=== PATIENT | male | born 1950 | race Caucasian/White ===

== ENCOUNTER 2023-11-03 09:43 | Inpatient (IN) ==
--- NOTE | 2023-10-24 14:06 | PAT Medication Instructions ---
Medication Instructions Date of Service October 24, 2023 Home Medications Medication Instructions Recorded triamcinolone acetonide 0.5 % 1 applic topical TID #15 grams 07/25/23 topical cream triamcinolone acetonide 0.5 % topical cream 1 applic topical TID Balance Of Nature Fruits/Vegs 1 dose PO DAILY Lactobacillus acidophilus 250 million cell capsule (Probiotic Acidophilus) 1,000 mmu cells PO HS alfuzosin 10 mg tablet,extended release 24 hr 10 mg PO QPM amlodipine 10 mg tablet 10 mg PO QAM aspirin 81 mg capsule 81 mg PO HS carbamazepine 300 mg capsule,extended release [id number] 600 mg PO QAM carbamazepine 300 mg capsule,extended release [id number] 900 mg PO HS ezetimibe 10 mg tablet (Zetia) 10 mg PO QPM metoprolol succinate 25 mg tablet,extended release 24 hr 75 mg PO BID rosuvastatin 20 mg tablet 20 mg PO QPM tolterodine 4 mg capsule,extended release 24 hr 4 mg PO QPM STOP taking 2 weeks before surgery (or as soon as possible): Balance Of Nature Fruits/Vegs 1 dose PO DAILY STOP taking 24 hours before surgery triamcinolone acetonide 0.5 % topical cream 1 applic topical TID Take morning of surgery With a small sip of water, OTHERWISE NOTHING TO EAT OR DRINK AFTER MIDNIGHT: amlodipine 10 mg tablet 10 mg PO QAM carbamazepine 300 mg capsule,extended release [id number] 600 mg PO QAM metoprolol succinate 25 mg tablet,extended release 24 hr 75 mg PO BID Take evening before surgery Lactobacillus acidophilus 250 million cell capsule (Probiotic Acidophilus) 1,000 mmu cells PO HS alfuzosin 10 mg tablet,extended release 24 hr 10 mg PO QPM aspirin 81 mg capsule 81 mg PO HS (unless surgeon directed otherwise) carbamazepine 300 mg capsule,extended release [id number] 900 mg PO HS ezetimibe 10 mg tablet (Zetia) 10 mg PO QPM metoprolol succinate 25 mg tablet,extended release 24 hr 75 mg PO BID rosuvastatin 20 mg tablet 20 mg PO QPM tolterodine 4 mg capsule,extended release 24 hr 4 mg PO QPM Other Notes If you have any questions please call us at [phone] or [phone] or [phone] or [phone]
--- NOTE | 2023-10-24 14:16 | Anesthesiology Consultation ---
Date of Service October 24, 2023 Assessment & Plan (1) Encounter for pre-operative examination: Chart Review Chart Review: Acceptable Risk for Surgery (pending review of most recent vascular note, carotid imaging, AAA imaging ) and Patient seen in Pre Admission Testing - Please obtain most recent vascular note, carotid imaging, and AAA imaging (Dr. Basim Flores- [facility]- [facility]) - Patient is NOT an OPJ candidate Chlorhexidine wipes NOT give due to open wound in surgical area Per PAT appt on 10/24/23, no recent illness/disease exposures, illness related symptoms, or recent illness/disease positive tests. Will leave to surgeon's discretion if preop Covid testing needed Last seen by cardiology 08/16/2023 = patient seen for follow-up on aortic stenosi s. Prosthetic heart valvenormal functioning bioprosthetic aortic valve based on last echo. HypertensionBP goal <130/80mmHg. Atherosclerotic heart diseasestable with no new symptoms. Hyperlipidemiacontinue statin. Abdominal aortic aneurysmwill try to obtain most recent imaging. Patient following with vascular surgery. Teaching & Discussion Pre-Anesthesia Teaching/Discussion Notes: Instructed NPO after midnight before surgery,except medications with 15 cc of water. Medication instructions provided according to the PAT guidelines. History Surgery Operation Date: 11/03/23 11:00 Proposed Procedures p Partial Revision Left Total Shoulder Arthroplasty with Irrigation and Debridement - Javier Patel, DO Height/Weight Height: 5 ft 10.5 in Weight: 99.7 kg Allergies Allergy/AdvReac Type Severity Reaction Status Date / Time No Known Allergies Allergy Verified 10/24/23 13:36 Medications Home Medications Medication Instructions Recorded Confirmed Last Taken triamcinolone acetonide 0.5 % 1 applic topical TID #15 grams 07/25/23 10/24/23 Unknown topical cream Balance Of Nature Fruits/Vegs 1 dose PO DAILY 10/24/23 10/24/23 Unknown Lactobacillus acidophilus 250 1,000 mmu cells PO HS 10/24/23 10/24/23 Unknown million cell capsule (Probiotic Acidophilus) alfuzosin 10 mg tablet,extended 10 mg PO QPM 10/24/23 10/24/23 Unknown release 24 hr amlodipine 10 mg tablet 10 mg PO QAM 10/24/23 10/24/23 Unknown aspirin 81 mg capsule 81 mg PO HS 10/24/23 10/24/23 Unknown carbamazepine 300 mg 600 mg PO QAM 10/24/23 10/24/23 Unknown capsule,extended release [id number] carbamazepine 300 mg 900 mg PO HS 10/24/23 10/24/23 Unknown capsule,extended release [id number] ezetimibe 10 mg tablet (Zetia) 10 mg PO QPM 10/24/23 10/24/23 Unknown metoprolol succinate 25 mg 75 mg PO BID 10/24/23 10/24/23 Unknown tablet,extended release 24 hr rosuvastatin 20 mg tablet 20 mg PO QPM 10/24/23 10/24/23 Unknown tolterodine 4 mg capsule,extended 4 mg PO QPM 10/24/23 10/24/23 Unknown release 24 hr Past Medical History Medical History (Updated 10/25/23 @ 16:14 by Molly Rudd PA-C) AAA (abdominal aortic aneurysm) under observation with vascular provider Aortic stenosis Severe s/p AVR 04/22/[address] Yanelis Page ([facility]- phone: [phone]) Asthma mild - no issues Basal cell carcinoma hx - s/p excision (multiple) BPH (benign prostatic hyperplasia) CAD (coronary artery disease) 2 vessel CABG at same time of AVR 2019 Carotid stenosis, bilateral right endarterectomy in 2019 -- monitoring the left side follows with vascular [facility] (Dr Flores) Hx of malignant neoplasm of kidney (09/2020) resolved with cryoablation therapy in 09/2020 Hyperglycemia Hyperlipidemia Hypertension Injury of left shoulder Initially injured in 2010 while in [facility], had surgery to repair Kidney stones hx - passed on his own -no surgical intervention no recent issues Osteoarthritis Seizures dx 03/2005 -> grand mal seizures. last seizure 2010 Exercise / Class Metabolic Activity II 4-5 Yardwork/Stairs/Walk up hill (one flight of stairs - no chest pain or SOB ) Past Family History Family History Father Coronary heart disease Past Surgical History Surgical History H/O shoulder surgery left shoulder surgery with K-wires (while in [facility]) 2011 History of carotid endarterectomy left (03/2020) History of colonoscopy History of coronary artery bypass graft x 2 2019 (with AVR) History of heart valve replacement aortic bovine valve (#23 inspiris tissue) 03/2020 at a hospital in [place], [place]. History of reverse total replacement of left shoulder joint (12/2011) History of surgical removal of skin lesion S/P cryoablation of mass of kidney (09/2020) S/P left rotator cuff repair 10/2010 Past Anesthesia History No Hx of Anesthesia Complications and No Family Hx of Anesthesia Complications History of PONV No Hx of PONV and No Hx of Motion Sickness Social History Smoking Status: Former smoker Do You Dip or Chew Tobacco: No Smoking End Date: 1980 Hx Alcohol Use: Yes Alcohol type: beer and hard liquor alcohol intake frequency: a few times a month Hx Substance Use: No substance use type: does not use Review of Systems - Hx of snoring - no witnessed apnea- no hx of sleep study Patient denies chest pain, shortness of breath, dyspnea on exertion, reflux, cough, wheezing, palpitations. No hx of stroke, VT. No hx of blood clots or blood transfusions Physical Exam Vital Signs VITALS BP 147/72 P 68 TEMP 97.7 SP02 94% RESP 16 Constitutional no acute distress ENMT Mouth: no TMJ clicking Thyromental Distance: > or= 3.5 Finger Breadths (3.5) Mallampati Class: I Missing molars and side teeth Crowns to top front teeth Neck + limited neck extension (mild) Respiratory normal respiratory effort; no respiratory distress Auscultation: lungs clear to auscultation bilaterally; no wheezes Cardiovascular Rate/Rhythm: regular rate and regular rhythm Heart Sounds: + murmur (III/ murmur ) Vessels: + carotid bruit (faint bilateral carotid bruit vs radiation of murmur ) Musculoskeletal Spine: no pain with cervical ROM Extremities: extremities normal to inspection Psychiatric Orientation: alert Lab Results Anesthesia Preop Results Results Anesthesia Widget: WBC 6.82 K/ul (4.8-10.8) 10/24/23 Hgb 13.8 g/dl (14.0-18.0) L 10/24/23 Hct 40.9 % (42.0-52.0) L 10/24/23 Plt 277 K/uL (130-400) 10/24/23 Na 136 mmol/L (136-145) 10/24/23 K 4.2 mmol/L (3.5-5.1) 10/24/23 Cl 100 mmol/L (98-107) 10/24/23 CO2 31 mmol/L (21-32) 10/24/23 BUN 9 mg/dl (6-23) 10/24/23 Creat 0.67 mg/dl (0.6-1.4) 10/24/23 Glucose Level 191 mg/dl (70-99(Fasting)) H 10/24/23 PT 11.4 Seconds (9.0-12.0) 10/24/23 PTT 31 Seconds (21-31) 10/24/23 INR 1.0 (0.9-1.1) 10/24/23 HA1c 5.8 % (4.5-5.6) H 10/24/23 Blood Type A Positive 10/24/23 Antibody Screen NEGATIVE 10/24/23 Testing Laboratory Results Hyperglycemia- Hgb A1C added (Hgb A1C 5.8) Electrocardiogram Date: 08/16/23 SR with 1st degree AVB at 65bpm Non specific T wave abnormality Chest X-Ray Date: 10/24/23 FINDINGS: Cardiac silhouette is upper limits of normal in size. Median sternotomy with cardiac valvular prosthesis. Left shoulder arthroplasty. Chronic-appearing bilateral rib fractures. Mild linear subsegmental left basilar atelectasis versus scarring. No pneumothorax, pleural effusion or overt pulmonary edema. Mild hyperinflation with diaphragm flattening. IMPRESSION: No acute process. Echocardiogram Date: 02/08/23 EF: 55-60% LV Function: normal Other Findings: + diastolic dysfunction (Grade i ); no LVH LA mildly dilated Normal functioning bioprosthetic AV. Cardiac Catheterization Date: 02/20/20 LM = luminal irregularities LAD = luminal regularities D1 luminal irregularities Left circumflex 100% proximal occlusion. LPL is seen via collaterals OM1 luminal regularities RCA 100% mid occlusion. [id number] collaterals are noted. RHC = PA: 35 over 15 mmHg, mean PA pressure = 25 mmHg.
[~2023-11-03 09:43] MED LIST: BUPIVACAINE 0.5 % 5 MG/1 ML PF 10ML VIAL ONE
--- NOTE | 2023-11-03 10:21 | History & Physical Bridge Note ---
Date of Service November 03, 2023 History & Physical Bridge Note I have examined the patient, reviewed the History & Physical and in the interval since the performance of the History & Physical I have noted the following changes of clinical significance: no changes noted
[2023-11-03] MEDS: LR 15ML/HR IV SCH (10:30)
[2023-11-03] MEDS: LR 60ML/HR IV SCH (10:40)
[2023-11-03] MEDS: FAMOTIDINE 20 MG TAB PO SCH (10:42)
[2023-11-03] MEDS: GABAPENTIN 300 MG CAP PO SCH (10:42)
[2023-11-03] MEDS: ACETAMINOPHEN 500 MG TAB PO SCH ×2 (10:43→20:35)
[2023-11-03] MEDS: dexAMETHasone**PF** 10 MG/ML VIAL IV SCH (10:44)
[2023-11-03] MEDS ORDERED: ONDANSETRON INJ 2 MG/ML 2 ML VIAL ONE (10:50)
[2023-11-03] MEDS ORDERED: LIDOCAINE 2% 2 ML VIAL/AMP(20MG/ML) INFIL ONE (10:50)
[2023-11-03] MEDS ORDERED: fentaNYL citrate PF 100 MCG/2 ML VIAL ONE (10:50)
[2023-11-03] MEDS ORDERED: DEXAMETHASONE SOD INJ 4 MG/ML VIAL ONE (10:50)
[2023-11-03] MEDS ORDERED: MIDAZOLAM HCL 1 MG/ML 2ML VIAL ONE (10:50)
[2023-11-03] MEDS ORDERED: PROPOFOL IV EMULSION 10 MG/ML 20 ML VIAL IV ONE (10:50)
[2023-11-03] MEDS ORDERED: ATROPINE SULFATE 0.1 MG/ML 10ML SYR IV PRN (11:20)
[2023-11-03] MEDS ORDERED: ONDANSETRON INJ 2 MG/ML 2 ML VIAL IV PRN ×2 (11:20→15:17)
[2023-11-03] MEDS ORDERED: fentaNYL citrate PF 100 MCG/2 ML VIAL IV PRN (11:20)
[2023-11-03] MEDS ORDERED: ePHEDrine sulfate 50 MG/ML AMP IV PRN (11:20)
[2023-11-03] MEDS ORDERED: LARYING-O-JET KIT (LTA) ONE (11:38)
[2023-11-03] MEDS ORDERED: ROCURONIUM BROMIDE 10 MG/ML 5 ML VIAL IV ONE (11:38)
[2023-11-03] MEDS: TRANEXAMIC ACID 1,000 MG **IV Pre-op IV SCH (12:00)
[2023-11-03] MEDS: ceFAZolin 2000MG 2,000 MG/15 ML SYR IV SCH (12:18)
[2023-11-03] MEDS ORDERED: SODIUM CHLORIDE 0.9% PF INJ 10 ML VIAL ONE (12:35)
[2023-11-03] MEDS ORDERED: ePHEDrine sulfate 50 MG/ML AMP ONE (12:35)
[2023-11-03] MEDS: ORTHO JOINT ANESTHETIC ONE (13:03)
[2023-11-03] MEDS: DAKIN'S SOLN 0.5% FULL STRENGTH 473ML BTL IR SCH (14:00)
[2023-11-03] MEDS: TRANEXAMIC ACID 1,000 MG **IV Intra-op IV SCH (14:03)
[2023-11-03] MEDS: ROPIV 0.5% 246mg, Ketorolac 30mg, EPINEPHrine 0.5mg in NSS INFIL SCH (14:04)
[2023-11-03] MEDS ORDERED: SUGAMMADEX SODIUM 200 MG/2 ML VIAL IV ONE (14:08)
--- NOTE | 2023-11-03 14:29 | Operative Report ---
PG Post Operative Report Pre & Post Diagnosis Operation Date: 11/03/23 11:40 Pre-Op Diagnosis: Prosthetic Left Shoulder Infection Post-Op Diagnosis: Prosthetic Left Shoulder Infection I identified the patient and participated in the time-out.: Yes Procedure Operation Date: 11/03/23 11:40 Actual Procedures p Partial Revision Left Total Shoulder Arthroplasty with Irrigation and Debridement(Left) - Javier Patel DO Surgeon Javier Patel DO Brusher Javier Grande PA-C Estimated Blood Loss 150 Findings Consistent with Post-Op Diagnosis Specimens Cultures from the shoulder joint Description of Procedure On November 03, 2023 Dyllan arrived at [facility] for the above procedure. He was seen in the preoperative holding area and the operative extremity identified and signed. Is given a preoperative antibiotic and a left interscalene nerve block. He is taken back to the operative room and laid on table supine position. He was put under general anesthesia. He was put into the beachchair position. Left shoulder was prepped and draped sterile fashion. A timeout was done. The patient and the operative extremity was properly identified. The previous incision was opened back up. Towards the inferior aspect of this incision I was able to dissect down to the humerus. There was a moderate amount of clear fluid expressed from that area. I did not see any purulent fluid. I did continue to dissection approximately. I was able to dissect into the glenohumeral joint. There was also a small amount of clear fluid. It almost looks like standard synovial fluid but it was difficult to tell. There was no bhavani pus. Significant time was then spent developing tissue planes to free up the shoulder. Care was taken not to damage any of the neurovascular structures. He has been dealing with the shoulder for the last 12 years with on and off infection type symptoms. I felt it was reasonable at this point to do a modular component exchange and a full I&D of the shoulder. The shoulder was then dislocated. The humeral bearing was removed. The glenosphere was exposed and the glenosphere was removed. Time was spent debriding all surrounding tissue. Once a complete debridement was done, a 3-minute Betadine lavage was then done. The components were then scrubbed vigorously with a Betadine scrub brush. The joint was then irrigated with 3 L normal saline solution. A 3-minute lavage of Dakin solution was then done. After that this complex was scrubbed vigorously with a Betadine scrub brush. The wound was then irrigated with 3 L of normal saline solution by pulse lavage. The shoulder was then once again irrigated with 3 L normal saline solution. Once the shoulder was cleaned, some of the drapes were changed. We are able to get a new Bovie tip and use suction tip. All gloves were changed. A clean table was brought in. A DePuy eccentric glenosphere was then screwed into place. A +6 retentive implant was then impacted into place. The shoulder was then reduced. The shoulder brought through full range of motion and felt to be stable. The deltopectoral interval was then closed with 2-0 Vicryl suture. Skin was closed with 3-0 Vicryl and pilar. He was then placed in a soft dressing and a regular arm sling. He was then extubated and transferred to a [facility]. He was taken to the postanesthesia care unit in stable condition. He tolerated the procedure well. Javier Grande PA-C, was present for the entire procedure. He was critical for patient positioning, prepping, draping, retraction exposure, wound closure and application of sterile dressing. I attest to the content of the Intraoperative Record and any orders documented therein. Any exceptions are noted below.
--- NOTE | 2023-11-03 14:52 | Anesthesiology Progress Note ---
Date of Service November 03, 2023 Anesthesia Post Procedure Vital Signs Vital Signs: Temp Pulse Resp BP Pulse Ox O2 Del Method O2 Flow Rate 11/03/23 14:45 74 13 119/72 95 Room Air 11/03/23 14:35 70 15 112/74 97 Oxymask 9 11/03/23 14:25 97.3 F L 73 13 126/71 97 Oxymask 9 11/03/23 10:27 97.5 F L 72 16 163/88 H 95 Room Air Transfer of Care Handoff Completed per policy Notes Mental Status: alert / awake / arousable and participated in evaluation Patient Amnestic to Procedure: Yes Nausea / Vomiting: adequately controlled Pain: adequately controlled Airway Patency, RR, SpO2: stable & adequate BP & HR: stable & adequate Hydration State: stable & adequate Anesthetic Complications: no major complications apparent and Pt Satisfied with anesthetic care
--- NOTE | 2023-11-03 15:16 | XRay Report ---
XR shoulder LT min 2V routine CLINICAL HISTORY: Post shoulder surgery TECHNIQUE: 3 views of the left shoulder were obtained. Comparison: Comparison is made to shoulder radiograph 04/30/2012 FINDINGS: Patient is status post shoulder arthroplasty with expected postsurgical changes including soft tissue swelling and subcutaneous emphysema. No periarticular lucency or hardware fracture is seen. IMPRESSION: Expected postoperative appearance status post placement of shoulder arthroplasty. ACT 112: Negative or not required by law. Electronically signed by: Guzman Torrez M.D. 11/03/2023 3:14 PM
[2023-11-03] MEDS ORDERED: oxyCODONE HCL IR 5 MG TAB (IMMEDIATE RELEASE) PO PRN (15:17)
[2023-11-03] MEDS ORDERED: NALOXONE HCL 0.4 MG/1 ML VIAL/CARP IV PRN (15:17)
[2023-11-03] MEDS ORDERED: bisacodyL 10 MG SUPP PR PRN (15:17)
[2023-11-03] MEDS ORDERED: VANCOMYCIN CONSULT ACTIVE PRN (15:17)
[2023-11-03] MEDS ORDERED: MAGNESIUM HYDROXIDE SUSP 30 ML UDC PO PRN (15:17)
[2023-11-03] MEDS ORDERED: METOCLOPRAMIDE HCL INJ 5 MG/ML 2 ML VIAL IV PRN (15:17)
[2023-11-03] MEDS ORDERED: HYDROmorphone INJ 0.5 MG/0.5 ML SYR IV PRN (15:17)
[2023-11-03] MEDS: SODIUM CHLORIDE 0.9% 1,000 ML IV SCH (15:54)
[2023-11-03] MEDS: VANCOMYCIN HCL 1,500 MG in SODIUM CHLORIDE 0.9% 500 ML IV ONE (17:54)
[2023-11-03] MEDS: KETOROLAC TROMETHAMINE 15 MG/ML VIAL IV SCH (17:54)
--- NOTE | 2023-11-03 18:26 | Infectious Disease Consult ---
Date of Consultation November 03, 2023 Assessment & Plan (1) Prosthetic shoulder infection: (2) Shoulder pain, left: (3) Asthma: Plan 73yo M with h/o LUE surgery at an including ORIF of proximal humerus OSH, s/p left cemented reverse shoulder replacement 12/2011, CAD s/p CABG, renal cancer in 2020 s/p cryoablation, asthma, BPH, seizures, renal stones, some h/o valve replacement who presented on 11/02 for surgery. Per chart, his shoulder has always been a little stiff and sore. He began noticing redness and hardness of the left axilla and was seen by outpatient ortho in Jul 2023, at which time this was ongoing x 6 weeks. Shoulder did not appear to be infected at that time. He was seen on 10/23 with left axilla drainage with some redness in the most inferior aspect of the incision. An MRI of the shoulder showed a large fluid collection beneath the prosthesis in the axilla. He was therefore planned for OR and undergo I+D. Here he has been afebrile, vss. WBC wnl, Cr wnl. ESR 33. MRI of the shoulder done on 10/15/2023 showed a rim-enhancing intramuscular fluid collection measuring up to 5.8cm within the teres major, suspicious for abscess. He is s/p partial revision left total shoulder arthroplasty with irrigation and debridement on 11/02 (per op note, moderate clear fluid expressed, joint irrigated and tissue debrided, no pus noted). Postop XR with expected postoperative appearance status post placement of shoulder arthroplasty. ID consulted 11/02 for assistance. Will wait for OR cx to determine plan. I will also add blood cultures. Synovial cultures should also be sent for AFB and fungal cultures, which Marge called micro lab about. # Concern for Left shoulder infectin # h/o left shoulder replacement # h/o CAD - Marge added on AFB and fungal cx to OR specimen - Marge ordered blood cultures and CRP - Marge also ordered am labs - will continue on empiric vancomycin for now - will change cefazolin to CTX 2g IV daily for empiric gram negative coverage - patient to be seen in via video on Monday ID will continue to follow. If questions or concerns, contact Infectious Disease Call Center . Kasia Lincoln MD [facility], Division of Infectious Diseases [facility]: [phone] Consultation Information This patient recommendation is based on a telemedicine consult request which was completed asynchronously through chart review and information provided by the primary physician. The patient was not seen or examined today. The evaluation is consultative in nature and all patient care and treatment decisions can either be accepted or rejected by the patient's primary hospital-based treating physician using their own independent medical judgment for their patient. [employer] contact information: Please call [facility] Call Center [phone]. (Phone Number For Physician Use Only) Time Spent Reviewing Chart: 31+ minutes History of Present Illness Reason for Consultation: postop total shoulder infection Attending Physician: Javier Patel, History of Present Illness No telepresenter available at this time, consult done via chart review. 73yo M with h/o LUE surgery at an including ORIF of proximal humerus OSH, s/p left cemented reverse shoulder replacement 12/2011, CAD s/p CABG, renal cancer in 2020 s/p cryoablation, asthma, BPH, seizures, renal stones, some h/o valve replacement who presented on 11/02 for surgery. Per chart, his shoulder has always been a little stiff and sore. He began noticing redness and hardness of the left axilla and was seen by outpatient ortho in Jul 2023, at which time this was ongoing x 6 weeks. Shoulder did not appear to be infected at that time. He was seen on 10/23 with left axilla drainage with some redness in the most inferior aspect of the incision. An MRI of the shoulder was done which showed good prosthesis, large fluid collection beneath the prosthesis in the axilla. He was therefore planned for OR and undergo I+D. Here he has been afebrile, vss. WBC wnl, Cr wnl. ESR 33. MRI of the shoulder done on 10/15/2023 showed a rim- enhancing intramuscular fluid collection measuring up to 5.8cm within the teres major, suspicious for abscess. He is s/p partial revision left total shoulder arthroplasty with irrigation and debridement on 11/02 (per op note, moderate clear fluid expressed, joint irrigated and tissue debrided, no pus noted). Postop XR with expected postoperative appearance status post placement of shoulder arthroplasty. ID consulted 11/02 for assistance. Allergies Allergy/AdvReac Type Severity Reaction Status Date / Time No Known Allergies Allergy Verified 11/03/23 10:17 Home Medications Medication Instructions Recorded Confirmed Type triamcinolone acetonide 0.5 % 1 applic topical TID #15 grams 07/25/23 11/03/23 Rx topical cream Balance Of Nature Fruits/Vegs 1 dose PO DAILY 10/24/23 11/03/23 History Lactobacillus acidophilus 250 1,000 mmu cells PO HS 10/24/23 11/03/23 History million cell capsule (Probiotic Acidophilus) alfuzosin 10 mg tablet,extended 10 mg PO QPM 10/24/23 11/03/23 History release 24 hr amlodipine 10 mg tablet 10 mg PO QAM 10/24/23 11/03/23 History aspirin 81 mg capsule 81 mg PO HS 10/24/23 11/03/23 History carbamazepine 300 mg 600 mg PO QAM 10/24/23 11/03/23 History capsule,extended release [id number] carbamazepine 300 mg 900 mg PO HS 10/24/23 11/03/23 History capsule,extended release [id number] ezetimibe 10 mg tablet (Zetia) 10 mg PO QPM 10/24/23 11/03/23 History metoprolol succinate 25 mg 75 mg PO BID 10/24/23 11/03/23 History tablet,extended release 24 hr rosuvastatin 20 mg tablet 20 mg PO QPM 10/24/23 11/03/23 History tolterodine 4 mg capsule,extended 4 mg PO QPM 10/24/23 11/03/23 History release 24 hr Patient History Medical History Hyperglycemia CAD (coronary artery disease) 2 vessel CABG at same time of AVR 2019 AAA (abdominal aortic aneurysm) under observation with vascular provider Aortic stenosis Severe s/p AVR 04/22/[address] Yanelis Page ([facility]- phone: [phone]) Injury of left shoulder Initially injured in [address] [facility], had surgery to repair Carotid stenosis, bilateral right endarterectomy in 2019 -- monitoring the left side follows with vascular [facility] (Dr Flores) Osteoarthritis Hx of malignant neoplasm of kidney (09/2020) resolved with cryoablation therapy in 09/2020 Kidney stones hx - passed on his own -no surgical intervention no recent issues Hyperlipidemia Seizures dx 03/2005 -> grand mal seizures. last seizure 2010 Hypertension Asthma mild - no issues BPH (benign prostatic hyperplasia) Basal cell carcinoma hx - s/p excision (multiple) Surgical History History of coronary artery bypass graft x 2019 (with AVR) S/P left rotator cuff repair 10/2010 H/O shoulder surgery left shoulder surgery with K-wires (while in [facility]) 2010 History of reverse total replacement of left shoulder joint (12/2011) History of carotid endarterectomy left (03/2020) S/P cryoablation of mass of kidney (09/2020) History of colonoscopy History of surgical removal of skin lesion History of heart valve replacement aortic bovine valve (#23 inspiris tissue) 03/2020 at a hospital in [place], [place]. Family History Father Coronary heart disease Social History Smoking Status: Former smoker Tobacco Type: Cigarettes Smoking End Date: 1980; Second Hand Exposure: No; Do You Dip or Chew Tobacco: No; Tobacco Cessation Education Requested by Patient: No Hx Alcohol Use: Yes Alcohol type: beer and hard liquor Hx Substance Use: No Preferred Language: Sami Communication Ability: Effective Corporate Lawyer Required: No Beliefs That Will Affect Care: None Current Living Situation: Spouse Other Information That Helps Us Care for You: No Feels Safe at Home: Yes Safety Concerns: Feels Safe At This Time Assistive Devices: Glasses Assistive Devices Comment: dental crowns Results & Data Vital Signs (Past 12 Hours) Vital Signs Temp Pulse Pulse Pulse Resp BP Pulse Ox 11/03/23 18:09 36.9 C 72 18 144/77 H 94 11/03/23 17:14 36.7 C 71 17 124/73 93 11/03/23 16:15 36.7 C 70 17 123/72 94 11/03/23 15:56 71 16 120/74 93 11/03/23 15:17 36.6 C 75 16 117/66 95 11/03/23 15:05 72 15 110/60 94 11/03/23 14:55 36.3 C L 71 15 117/68 95 11/03/23 14:45 74 13 119/72 95 11/03/23 14:35 70 15 112/74 97 11/03/23 14:25 36.3 C L 73 13 126/71 97 11/03/23 10:27 36.4 C L 72 16 163/88 H 95 O2 Del Method O2 Flow Rate 11/03/23 18:09 Room Air 11/03/23 17:14 Room Air 11/03/23 16:15 Room Air 11/03/23 15:56 Room Air 11/03/23 15:17 Room Air 11/03/23 15:05 Room Air 11/03/23 14:55 Room Air 11/03/23 14:45 Room Air 11/03/23 14:35 Oxymask 9 11/03/23 14:25 Oxymask 9 11/03/23 10:27 Room Air Laboratory Results Labs reviewed. Diagnostic Findings Imaging reviewed.
[2023-11-03] MEDS ORDERED: ceFAZolin 2000MG 2,000 MG/15 ML SYR IV SCH (20:30)
[2023-11-03] MEDS: OXYBUTYNIN CHLORIDE XL 5 MG TABCR PO SCH (20:35)
[2023-11-03] MEDS: EZETIMIBE 10 MG TAB PO SCH (20:35)
[2023-11-03] MEDS: METOPROLOL SUCC 25MG EXT REL TAB PO SCH (20:36)
[2023-11-03] MEDS: TAMSULOSIN HCL 0.4 MG CAP PO SCH (20:36)
[2023-11-03] MEDS: ROSUVASTATIN CALCIUM 20 MG TAB PO SCH (20:36)
[2023-11-03] MEDS: SENNA 8.6 MG TAB PO SCH (20:36)
[2023-11-03] MEDS: DOCUSATE SODIUM 100 MG CAP PO SCH (20:37)
[2023-11-03] MEDS ORDERED: TRIAMCINOLONE ACET 0.5% CR 15 GM TUBE TOP SCH (21:00)
[2023-11-03] MEDS: cefTRIAXone SODIUM 2,000 MG in DEXTROSE 5 % MINI-B 50 ML IV SCH (21:00)
[2023-11-03] MEDS ORDERED: CARBAMAZEPINE 300 MG PO SCH (21:00)
[2023-11-04 06:13] LABS: Basophils # (auto) 0.01 K/uL (0.00-0.20); Basophils % (auto) 0.1 %; Eosinophils # (auto) 0.01 K/uL (0.00-0.50); Eosinophils % (auto) 0.1 %; Hematocrit (blood only) 39.7 % (42.0-52.0); Hemoglobin 13.4 g/dl (14.0-18.0); Immature Granulocytes # (auto) 0.07 K/uL (0.01-0.20); Immature Granulocytes % (auto) 0.4 %; Lymphocytes % (auto) 6.9 %; Mean Corpuscular Hemoglobin 29.6 pg (25.0-34.0); Mean Corpuscular Hgb Conc 33.8 g/dL (32.0-36.0); Mean Corpuscular Volume 87.8 fL (80.0-100.0); Mean Platelet Volume 9.8 fL (9.4-12.4); Monocytes # (auto) 1.14 K/uL (0.11-0.59); Monocytes % (auto) 7.1 %; Neutrophils % (auto) 85.4 %; Platelet Count 298 K/uL (130-400); RDW Coefficient of Variation 12.7 % (11.5-14.5); Red Blood Count 4.52 M/uL (4.70-6.10); White Blood Count 16.03 K/ul (4.8-10.8)
[2023-11-04 06:28] LABS: Albumin Globulin Ratio 1.1 (0.9-2); BUN Creatinine Ratio 18.8 (10-20); Bilirubin,Total 0.3 mg/dl (0.2-1.0); Calcium 9.2 mg/dl (8.6-10.3); Creatinine Clr Calc Pharmacy 94.2 ml/min; Est GFR (African American) 101.6 ml/min; Est GFR (Non-African American) 87.7 ml/min; Globulin 3.6 gm/dl (2.5-4.0); Potassium 4.4 mmol/L (3.5-5.1); Total Protein 7.6 gm/dl (6.0-8.3)
[2023-11-04] MEDS ORDERED: CARBAMAZEPINE 300 MG PO SCH (09:00)
[2023-11-04] MEDS: amLODIPine BESYLATE 5 MG TAB PO SCH (09:09)
[2023-11-04] MEDS: MULTIVITAMIN TAB PO SCH (09:09)
--- NOTE | 2023-11-04 10:29 | Hospitalist Consultation ---
Date of Consultation November 04, 2023 Assessment & Plan (1) Prosthetic shoulder infection: - Patient had partial revision left total shoulder arthroplasty with irrigation and debridement with Dr. Patel on 11/03/2023 due to prosthetic left shoulder infection. - Leukocytosis at 16. Afebrile. CRP elevated at 2.31. - Currently on empiric vancomycin and ceftriaxone. Cultures pending. - Pain control, activity level, medication reconciliation, and discharge planning per the primary team. (2) CAD (coronary artery disease) of artery bypass graft: - Patient with history of CAD s/p CABG, bioprosthetic valve replacements, aortic stenosis, bilateral carotid stenosis s/p right endarterectomy, and abdominal aortic aneurysm - Continue amlodipine, aspirin, metoprolol - Continue ezetimibe and rosuvastatin for hyperlipidemia (3) Seizures: - Diagnosed after grand mal seizure in 2004. Last known seizure in 2010. - Continue carbamazepine (4) Hx of malignant neoplasm of kidney: - Resolved with cryoablation therapy in 09/2020 (5) BPH (benign prostatic hyperplasia): - Continue Alfuzosin and tolterodine (6) Asthma: - Mild. No SOB, wheezing, or respiratory distress at this time. Plan Pain control, activity level, medication reconciliation, and discharge planning per the primary team CODE STATUS: Full code History of Present Illness Reason for Consultation: Post-operative management Requesting Physician: Javier Grande PA-C Attending Physician: Javier Patel DO History of Present Illness Patient had partial revision left total shoulder arthroplasty with irrigation and debridement with Dr. Patel on 11/03/2023 due to prosthetic left shoulder infection. Patient with history of CAD s/p CABG, renal cancer in 2020 s/p cryoablation, seizures, bioprosthetic valve replacements, renal stones, BPH, asthma. Per operative note, moderate clear fluid was expressed, joint irrigated and tissue debrided, no pus noted. Infectious disease was consulted for concern of left shoulder infection. Patient is on empiric vancomycin and ceftriaxone. AFB and fungal culture on OR specimen and blood cultures pending. Patient seen and evaluated at bedside with . He reports that he is feeling well and his pain is well-controlled with medication. He states he slept well last night and has a good appetite. He is urinating normally, has not had a bowel movement yet. He has no complaints at this time. Denies shortness of breath, chest pain, abdominal pain, headache, lightheadedness. Allergies Allergy/AdvReac Type Severity Reaction Status Date / Time No Known Allergies Allergy Verified 11/03/23 10:17 Home Medications Medication Instructions Recorded Confirmed Type triamcinolone acetonide 0.5 % 1 applic topical TID #15 grams 07/25/23 11/03/23 Rx topical cream Balance Of Nature Fruits/Vegs 1 dose PO DAILY 10/24/23 11/03/23 History Lactobacillus acidophilus 250 1,000 mmu cells PO HS 10/24/23 11/03/23 History million cell capsule (Probiotic Acidophilus) alfuzosin 10 mg tablet,extended 10 mg PO QPM 10/24/23 11/03/23 History release 24 hr amlodipine 10 mg tablet 10 mg PO QAM 10/24/23 11/03/23 History aspirin 81 mg capsule 81 mg PO HS 10/24/23 11/03/23 History carbamazepine 300 mg 600 mg PO QAM 10/24/23 11/03/23 History capsule,extended release [id number] carbamazepine 300 mg 900 mg PO HS 10/24/23 11/03/23 History capsule,extended release [id number] ezetimibe 10 mg tablet (Zetia) 10 mg PO QPM 10/24/23 11/03/23 History metoprolol succinate 25 mg 75 mg PO BID 10/24/23 11/03/23 History tablet,extended release 24 hr rosuvastatin 20 mg tablet 20 mg PO QPM 10/24/23 11/03/23 History tolterodine 4 mg capsule,extended 4 mg PO QPM 10/24/23 11/03/23 History release 24 hr Patient History Medical History (Updated 11/04/23 @ 10:47 by Bailey Chris PA-C) Renal cancer Rectal bleeding Rectal bleeding Hyperglycemia CAD (coronary artery disease) 2 vessel CABG at same time of AVR 2019 AAA (abdominal aortic aneurysm) under observation with vascular provider Aortic stenosis Severe s/p AVR 04/22/[address] Yanelis Page ([facility]- phone: [phone]) Injury of left shoulder Initially injured in 2010 while in [facility], had surgery to repair Carotid stenosis, bilateral right endarterectomy in 2019 -- monitoring the left side follows with vascular [facility] (Dr Flores) Osteoarthritis Hx of malignant neoplasm of kidney (09/2020) resolved with cryoablation therapy in 09/2020 Kidney stones hx - passed on his own -no surgical intervention no recent issues Hyperlipidemia Seizures dx 03/2005 -> grand mal seizures. last seizure 2010 Hypertension Asthma mild - no issues BPH (benign prostatic hyperplasia) Basal cell carcinoma hx - s/p excision (multiple) Surgical History (Updated 11/04/23 @ 10:22 by Bailey Chris PA-C) History of coronary artery bypass graft x 2 2019 (with AVR) S/P left rotator cuff repair 10/2010 H/O shoulder surgery left shoulder surgery with K-wires (while in [facility]) 2010 History of reverse total replacement of left shoulder joint (12/2011) History of carotid endarterectomy left (03/2020) S/P cryoablation of mass of kidney (09/2020) History of colonoscopy History of surgical removal of skin lesion History of heart valve replacement aortic bovine valve (#23 inspiris tissue) 03/2020 at a hospital in [place], [place]. Family History Father Coronary heart disease Social History Smoking Status: Former smoker Tobacco Type: Cigarettes Smoking End Date: 1980; Second Hand Exposure: No; Do You Dip or Chew Tobacco: No; Tobacco Cessation Education Requested by Patient: No Hx Alcohol Use: Yes Alcohol type: beer and hard liquor Hx Substance Use: No Preferred Language: Samoan Communication Ability: Effective Legal Billing Analyst Required: No Beliefs That Will Affect Care: None Current Living Situation: Spouse Other Information That Helps Us Care for You: No Feels Safe at Home: Yes Safety Concerns: Feels Safe At This Time Assistive Devices: None Assistive Devices Comment: dental crowns Physical Exam Physical Exam: General: No acute distress, nondiaphoretic, well-developed, well-nourished. Skin: The skin was without rashes, erythema, edema, or bruising. Cardiac: Regular rate and rhythm without gallops or rubs. Systolic murmur. No carotid bruits. Pulm: Clear to auscultation bilaterally without wheezes, rales or rhonchi. No retractions or accessory muscle use. Abdominal: Positive bowel sounds x 4. Soft, nontender, without masses or organomegaly. No guarding or rebound tenderness. Neuro: A&O x3. No focal neurological deficits. Extremities: Left arm in sling. Left shoulder dressing is clean and dry. Normal motion of left wrist and hand. Good perfusion to left fingers. Results & Data Results & Data Vital Signs (Past 12 Hours) Vital Signs Temp Pulse Resp BP Pulse Ox O2 Del Method 11/04/23 07:26 36.7 C 62 16 145/83 H 93 Room Air 11/04/23 03:32 36.6 C 64 16 147/78 H 93 Room Air 11/03/23 22:29 36.4 C L 65 16 127/69 94 Room Air Laboratory Results Reviewed CBC Reviewed chemistries Reviewed shoulder x-ray Reviewed cultures PG Care Time/CCT Total # of Minutes Spent Total Time Spent with Patient: Total time spent is greater than 50% in coordination of care (as documented) at patient's floor/unit and/or counseling patient: Coding Level of Care Code 60661 IN/OBS CONSULT LVL 3,45M Diagnoses Infection of prosthetic shoulder joint, initial encounter T84.59XA; Z96.619 Encounter type: initial encounter Coronary artery disease involving coronary bypass graft of [place] heart without angina pectoris I25.810 Associated angina: without angina [place] vs. transplanted heart: [place] heart Seizures R56.9 Hx of malignant neoplasm of kidney Z85.528 Benign prostatic hyperplasia, unspecified whether lower urinary tract symptoms present N40.0 Lower urinary tract symptom presence: unspecified whether lower urinary tract symptoms present Uncomplicated asthma, unspecified asthma severity, unspecified whether persistent J45.909 Asthma complication type: uncomplicated Asthma persistence: unspecified Asthma severity: unspecified severity (1) Prosthetic shoulder infection Encounter type: initial encounter Qualified Code(s): T84.59XA - Infection and inflammatory reaction due to other internal joint prosthesis, initial encounter; Z96.619 - Presence of unspecified artificial shoulder joint (2) CAD (coronary artery disease) of artery bypass graft Associated angina: without angina [place] vs. transplanted heart: [place] heart Qualified Code(s): I25.810 - Atherosclerosis of coronary artery bypass graft(s) without angina pectoris (5) BPH (benign prostatic hyperplasia) Lower urinary tract symptom presence: unspecified whether lower urinary tract symptoms present Qualified Code(s): N40.0 - Benign prostatic hyperplasia without lower urinary tract symptoms (6) Asthma Asthma complication type: uncomplicated Asthma persistence: unspecified Asthma severity: unspecified severity Qualified Code(s): J45.909 - Unspecified asthma, uncomplicated
--- NOTE | 2023-11-04 11:24 | Orthopedic Progress Note ---
Date of Service November 04, 2023 Assessment & Plan (1) Prosthetic shoulder infection: Overall he is doing fairly well. He was seen by infectious disease today and his antibiotics were switched to ceftriaxone. He was also seen by the hospitalist. Blood cultures were obtained. Were currently awaiting intraoper ative cultures. Overall he is comfortable for now. Will keep him on the IV antibiotics and await culture results. Jacoby Mijares was seen and examined at bedside this morning. Overall is doing fairly well. Is not having too much pain in the left shoulder. He was able to get some sleep last night. Has no complaints.. Review of Systems All systems reviewed & are unremarkable except as noted in HPI & below. Physical Exam On physical examination left shoulder, the dressing is clean and dry. He is wearing his sling as instructed. He has active motion of his hand and his wrist.. Results & Data Results & Data Laboratory Results . Diagnostic Findings . PG Care Time/CCT Total # of Minutes Spent Total Time Spent with Patient: Total time spent is greater than 50% in coordination of care (as documented) at patient's floor/unit and/or counseling patient: Coding Level of Care Code 09381 Post Operative Follow-Up Diagnoses Infection of prosthetic shoulder joint, initial encounter T84.59XA; Z96.619 Encounter type: initial encounter (1) Prosthetic shoulder infection Encounter type: initial encounter Qualified Code(s): T84.59XA - Infection and inflammatory reaction due to other internal joint prosthesis, initial encounter; Z96.619 - Presence of unspecified artificial shoulder joint
[2023-11-05 06:44] LABS: Albumin Globulin Ratio 1.1 (0.9-2); Albumin Level 3.6 gm/dl (3.4-5.0); BUN Creatinine Ratio 22.4 (10-20); Bilirubin,Total 0.3 mg/dl (0.2-1.0); Calcium 8.8 mg/dl (8.6-10.3); Creatinine Clr Calc Pharmacy 105.4 ml/min; Est GFR (African American) 106.4 ml/min; Est GFR (Non-African American) 91.8 ml/min; Globulin 3.2 gm/dl (2.5-4.0); Potassium 4.1 mmol/L (3.5-5.1); Total Protein 6.8 gm/dl (6.0-8.3)
[2023-11-05 06:47] LABS: Basophils # (auto) 0.04 K/uL (0.00-0.20); Basophils % (auto) 0.4 %; Eosinophils # (auto) 0.16 K/uL (0.00-0.50); Eosinophils % (auto) 1.6 %; Hematocrit (blood only) 36.8 % (42.0-52.0); Hemoglobin 12.2 g/dl (14.0-18.0); Immature Granulocytes # (auto) 0.04 K/uL (0.01-0.20); Immature Granulocytes % (auto) 0.4 %; Lymphocytes # (auto) 2.07 K/uL (1.20-3.40); Lymphocytes % (auto) 21.2 %; Mean Corpuscular Hemoglobin 29.6 pg (25.0-34.0); Mean Corpuscular Hgb Conc 33.2 g/dL (32.0-36.0); Mean Corpuscular Volume 89.3 fL (80.0-100.0); Monocytes # (auto) 0.82 K/uL (0.11-0.59); Monocytes % (auto) 8.4 %; Neutrophils # (auto) 6.62 K/uL (1.40-6.50); Platelet Count 243 K/uL (130-400); RDW Coefficient of Variation 13.2 % (11.5-14.5); RDW Standard Deviation 43.1 fL (36.4-46.3); Red Blood Count 4.12 M/uL (4.70-6.10); White Blood Count 9.75 K/ul (4.8-10.8)
--- NOTE | 2023-11-05 10:16 | Hospitalist Progress Note ---
Date of Service November 05, 2023 Assessment & Plan (1) Prosthetic shoulder infection: Plan: - Patient had partial revision left total shoulder arthroplasty with irrigation and debridement with Dr. Patel on 11/03/2023 due to prosthetic left shoulder infection. - Leukocytosis at 16. Afebrile. CRP elevated at 2.31. - Currently on empiric vancomycin and ceftriaxone. -- Preliminary left shoulder and blood cultures negative. - Pain control, activity level, medication reconciliation, and discharge planning per the primary team. (2) CAD (coronary artery disease) of artery bypass graft: Plan: - Patient with history of CAD s/p CABG, bioprosthetic valve replacements, aortic stenosis, bilateral carotid stenosis s/p right endarterectomy, and abdominal aortic aneurysm - Continue amlodipine, aspirin, metoprolol - Continue ezetimibe and rosuvastatin for hyperlipidemia (3) Seizures: Plan: - Diagnosed after grand mal seizure in 2004. Last known seizure in 2010. - Continue carbamazepine (4) Hx of malignant neoplasm of kidney: Plan: - Resolved with cryoablation therapy in 09/2020 (5) BPH (benign prostatic hyperplasia): Plan: - Continue Alfuzosin and tolterodine (6) Asthma: Plan: - Mild. No SOB, wheezing, or respiratory distress at this time. Plan Pain control, activity level, medication reconciliation, and discharge planning per the primary team CODE STATUS: Full code Admission and Anticipated Discharge Date Admission Date: November 03, 2023 Supervising Physician Co-Signing Physician Notes The patient was not seen by me. The chart was reviewed. Case discussed with CHRISTINE Adair. Agree with assessment and plan Subjective Patient had partial revision left total shoulder arthroplasty with irrigation and debridement with Dr. Patel on 11/03/2023 due to prosthetic left shoulder infection. Patient with history of CAD s/p CABG, renal cancer in 2020 s/p cr yoablation, seizures, bioprosthetic valve replacements, renal stones, BPH, asthma. Patient seen and evaluated sitting in bedside chair with in the room. He reports he is feeling well, has no pain at this time, and has been up walking the halls this morning. He had a bowel movement last night. He has no complaints. Denies shortness of breath, chest pain, abdominal pain, headache, lightheadedness. He states that he feels ready to go home. We discussed that ID is also consulted on his case to recommend antibiotic management. He is agreeable to whatever decision the primary team and ID decides for treatment course. Physical Exam Physical Exam: General: No acute distress, nondiaphoretic, well-developed, well-nourished. Skin: The skin was without rashes, erythema, edema, or bruising. Cardiac: Regular rate and rhythm without gallops or rubs. Systolic murmur. No carotid bruits. Pulm: Clear to auscultation bilaterally without wheezes, rales or rhonchi. No retractions or accessory muscle use. Abdominal: Positive bowel sounds x 4. Soft, nontender, without masses or organomegaly. No guarding or rebound tenderness. Neuro: A&O x3. No focal neurological deficits. Extremities: Left arm in sling. Left shoulder dressing is clean and dry. Normal motion of left wrist and hand. Good perfusion to left fingers. Results & Data Results & Data Vital Signs (Past 12 Hours) Vital Signs Temp Pulse Resp BP Pulse Ox O2 Del Method 11/05/23 07:14 36.5 C 57 L 17 169/83 H 94 Room Air Laboratory Results Reviewed CBC Reviewed CMP PG Care Time/CCT Total # of Minutes Spent Total Time Spent with Patient: Total time spent is greater than 50% in coordination of care (as documented) at patient's floor/unit and/or counseling patient: Coding Level of Care Code 60843 SUB INP/OBS CARE 2/35MIN Diagnoses Infection of prosthetic shoulder joint, initial encounter T84.59XA; Z96.619 Encounter type: initial encounter Coronary artery disease involving coronary bypass graft of [place] heart without angina pectoris I25.810 Associated angina: without angina [place] vs. transplanted heart: [place] heart Seizures R56.9 Hx of malignant neoplasm of kidney Z85.528 Benign prostatic hyperplasia, unspecified whether lower urinary tract symptoms present N40.0 Lower urinary tract symptom presence: unspecified whether lower urinary tract symptoms present Uncomplicated asthma, unspecified asthma severity, unspecified whether persistent J45.909 Asthma complication type: uncomplicated Asthma persistence: unspecified Asthma severity: unspecified severity (1) Prosthetic shoulder infection Encounter type: initial encounter Qualified Code(s): T84.59XA - Infection and inflammatory reaction due to other internal joint prosthesis, initial encounter; Z96.619 - Presence of unspecified artificial shoulder joint (2) CAD (coronary artery disease) of artery bypass graft Associated angina: without angina [place] vs. transplanted heart: [place] heart Qualified Code(s): I25.810 - Atherosclerosis of coronary artery bypass graft(s) without angina pectoris (5) BPH (benign prostatic hyperplasia) Lower urinary tract symptom presence: unspecified whether lower urinary tract symptoms present Qualified Code(s): N40.0 - Benign prostatic hyperplasia without lower urinary tract symptoms (6) Asthma Asthma complication type: uncomplicated Asthma persistence: unspecified Asthma severity: unspecified severity Qualified Code(s): J45.909 - Unspecified asthma, uncomplicated
--- NOTE | 2023-11-05 13:29 | Orthopedic Progress Note ---
Date of Service November 05, 2023 Assessment & Plan (1) Prosthetic shoulder infection: He continues to be treated with the ceftriaxone. He is not having much pain in his shoulder. We are still waiting for culture results. The hospitalist has been following him as well as infectious disease. We will await for final infectious disease recommendations before we discharge him to home. Jacoby Mijares was seen and examined at bedside this morning. Overall he is doing very well. He is not having much pain in the left shoulder. He has been receiving IV antibiotics. He has no complaints.. Review of Systems All systems reviewed & are unremarkable except as noted in HPI & below. Physical Exam On physical examination left shoulder, the dressing is clean and dry. He is wearing his sling as instructed. He has active motion of his hand and his wrist.. Results & Data Results & Data Laboratory Results . Diagnostic Findings . PG Care Time/CCT Total # of Minutes Spent Total Time Spent with Patient: Total time spent is greater than 50% in coordination of care (as documented) at patient's floor/unit and/or counseling patient: Coding Level of Care Code 38341 Post Operative Follow-Up Diagnoses Infection of prosthetic shoulder joint, initial encounter T84.59XA; Z96.619 Encounter type: initial encounter (1) Prosthetic shoulder infection Encounter type: initial encounter Qualified Code(s): T84.59XA - Infection and inflammatory reaction due to other internal joint prosthesis, initial encounter; Z96.619 - Presence of unspecified artificial shoulder joint
[2023-11-06 06:57] LABS: Basophils # (auto) 0.04 K/uL (0.00-0.20); Basophils % (auto) 0.5 %; Eosinophils # (auto) 0.18 K/uL (0.00-0.50); Eosinophils % (auto) 2.3 %; Hematocrit (blood only) 36.6 % (42.0-52.0); Hemoglobin 12.3 g/dl (14.0-18.0); Immature Granulocytes # (auto) 0.02 K/uL (0.01-0.20); Immature Granulocytes % (auto) 0.3 %; Lymphocytes # (auto) 1.37 K/uL (1.20-3.40); Lymphocytes % (auto) 17.3 %; Mean Corpuscular Hemoglobin 29.7 pg (25.0-34.0); Mean Corpuscular Hgb Conc 33.6 g/dL (32.0-36.0); Mean Corpuscular Volume 88.4 fL (80.0-100.0); Mean Platelet Volume 9.8 fL (9.4-12.4); Monocytes # (auto) 0.78 K/uL (0.11-0.59); Monocytes % (auto) 9.8 %; Neutrophils # (auto) 5.55 K/uL (1.40-6.50); Neutrophils % (auto) 69.8 %; Platelet Count 243 K/uL (130-400); RDW Coefficient of Variation 13.1 % (11.5-14.5); RDW Standard Deviation 42.5 fL (36.4-46.3); Red Blood Count 4.14 M/uL (4.70-6.10); White Blood Count 7.94 K/ul (4.8-10.8)
[2023-11-06 07:20] LABS: BUN Creatinine Ratio 17.2 (10-20); Calcium 8.9 mg/dl (8.6-10.3); Creatinine Clr Calc Pharmacy 125.1 ml/min; Est GFR (African American) 114.2 ml/min; Est GFR (Non-African American) 98.5 ml/min; Potassium 3.6 mmol/L (3.5-5.1)
--- NOTE | 2023-11-06 09:49 | Orthopedic Progress Note ---
Date of Service November 06, 2023 Assessment & Plan (1) Prosthetic shoulder infection: He continues to be treated with the ceftriaxone. He is not having much pain in his left shoulder. We are still waiting for culture results. The hospitalist has been following him as well as infectious disease. We will await for final infectious disease recommendations before we discharge him to home. Anticipated discharge within the next day or so upon receipt of final culture results as well as final recommendations for discharge antibiotic coverage. Patient was seen and evaluated today with Dr. Patel with agreed-upon plan as above Subjective . Dyllan was seen and evaluated today resting comfortably in no apparent distress. Overall he is doing quite well today with good pain control to the left shoulder. He has been up and out of bed without difficulty. He has been receiving IV antibiotics. He denies any other concerns today. Review of Systems All systems reviewed & are unremarkable except as noted in HPI & below. Physical Exam . On physical examination of left shoulder, dressings are clean, dry, intact. He is maintaining his sling to the left shoulder. Grossly intact motor and sensory function to the left upper extremity. +2 radial pulse. Less than 2- second capillary refill. Normal sensation. Neurovascular intact. Results & Data Results & Data Laboratory Results . Diagnostic Findings . PG Care Time/CCT Total # of Minutes Spent Total Time Spent with Patient: Total time spent is greater than 50% in coordination of care (as documented) at patient's floor/unit and/or counseling patient: Coding Level of Care Code 32821 Post Operative Follow-Up Diagnoses Infection of prosthetic shoulder joint, initial encounter T84.59XA; Z96.619 Encounter type: initial encounter (1) Prosthetic shoulder infection Encounter type: initial encounter Qualified Code(s): T84.59XA - Infection and inflammatory reaction due to other internal joint prosthesis, initial encounter; Z96.619 - Presence of unspecified artificial shoulder joint
--- NOTE | 2023-11-06 10:06 | Infectious Disease Progress Nt ---
Date of Service November 06, 2023 Assessment & Plan (1) Prosthetic shoulder infection: (2) Shoulder pain, left: (3) Asthma: Plan 73yo M with h/o LUE surgery at an including ORIF of proximal humerus OSH, s/p left cemented reverse shoulder replacement 12/2011, CAD s/p CABG, renal cancer in 2020 s/p cryoablation, asthma, BPH, seizures, renal stones, some h/o valve replacement who presented on 11/02 for surgery. Per chart, his shoulder has always been a little stiff and sore. He began noticing redness and hardness of the left axilla and was seen by outpatient ortho in Jul 2023, at which time this was ongoing x 6 weeks. Shoulder did not appear to be infected at that time. He was seen on 10/23 with left axilla drainage with some redness in the most inferior aspect of the incision. An MRI of the shoulder showed a large fluid collection beneath the prosthesis in the axilla. He was therefore planned for OR and undergo I+D. Here he has been afebrile, vss. WBC wnl, Cr wnl. ESR 33. MRI of the shoulder done on 10/15/2023 showed a rim-enhancing intramuscular fluid collection measuring up to 5.8cm within the teres major, suspicious for abscess. He is s/p partial revision left total shoulder arthroplasty with irrigation and debridement on 11/02 (per op note, moderate clear fluid expressed, joint irrigated and tissue debrided, no pus noted). Postop XR with expected postoperative appearance status post placement of shoulder arthroplasty. ID consulted 11/02 for assistance. ON 11/02 He went to OR for Partial Revision Left Total Shoulder Arthroplasty with Irrigation and Debridement and component exchange OR fluid appeared clear without infection. OR cultures are NG I spoke with daughter and patient today, He apparently was on abx prior to admission including Doxycycline and Bactrim. this may have reduced yield # Concern for Left shoulder infection # h/o left shoulder replacement # h/o CAD - C/W [employer] and Vancomycin for now Anticiapte he will be discharged on Daptomycin and Ceftriaxone tomorrow -Can place PICC line -Will d/w teams, likely 6 week of therapy followed by oral suppressive, unclear cause of abscess at this time as he is HD stable, etc ID will continue to follow. If questions or concerns, contact Infectious Disease Call Center . Sona Benavidez MD [facility], Division of Infectious Diseases [facility]: [phone] Admission and Anticipated Discharge Date Admission Date: November 03, 2023 Subjective Subsequent visit was provided via telemedicine using two-way real-time interactive telecommunication between the patient and the telemedicine provider. For the duration of the visit, the provider was performing the assessment from a different facility than the patient. This includesuse of bluetooth stethoscope forauscultationperformed by the telepresenter that the telemedicine provider can hear if described in the physical exam. [employer] contact information: Please call [facility] Call Center . (Phone Number For Physician Use Only) After establishing a telemedicine visit, patient was: Patient was verified with two unique identifiers, Patient/authorized rep acknowledged consent and understanding and Gave permission to continue telehealth session Time Spent with Patient: Subsequent => 35 min No complaints Daughter at bedside Physical Exam Physical Exam: NAD OOB to Chair PIVs, no rash Left shoulder in sling OP Clear No dyspnea Results & Data Vital Signs (Past 12 Hours) Vital Signs Temp Pulse Resp BP Pulse Ox O2 Del Method 11/06/23 09:00 Room Air 11/06/23 07:31 36.6 C 68 15 153/78 H 96 Room Air Laboratory Results Laboratory Results - last 48 hr 11/05/23 11/06/23 05:51 06:17 WBC 9.75 7.94 RBC 4.12 L 4.14 L Hgb 12.2 L 12.3 L Hct 36.8 L 36.6 L MCV 89.3 88.4 MCH 29.6 29.7 MCHC 33.2 33.6 RDW Std Deviation 43.1 42.5 RDW Coeff of Mac 13.2 13.1 Plt Count 243 243 MPV 10.0 9.8 Immature Gran % (Auto) 0.4 0.3 Neut % (Auto) 68.0 69.8 Lymph % (Auto) 21.2 17.3 [place] % (Auto) 8.4 9.8 Eos % (Auto) 1.6 2.3 Baso % (Auto) 0.4 0.5 Neut # (Auto) 6.62 H 5.55 Lymph # (Auto) 2.07 1.37 [place] # (Auto) 0.82 H 0.78 H Eos # (Auto) 0.16 0.18 Baso # (Auto) 0.04 0.04 Immature Gran # (Auto) 0.04 0.02 Sodium 138 139 Potassium 4.1 3.6 Chloride 107 106 Carbon Dioxide 27 28 Anion Gap 4 5 BUN 17 11 Creatinine 0.76 0.64 Est Cr Clr Drug Dosing 105.4 125.1 Est GFR ( Amer) 106.4 114.2 Est GFR (Non-Af Amer) 91.8 98.5 BUN/Creatinine Ratio 22.4 H 17.2 Glucose 108 H 105 H Calcium 8.8 8.9 Total Bilirubin 0.3 AST 15 ALT 9 Alkaline Phosphatase 111 H Total Protein 6.8 Albumin 3.6 Globulin 3.2 Albumin/Globulin Ratio 1.1 Microbiology 11/03/23 18:58 Blood Aerobic Blood Culture - Preliminary No growth in Aerobic bottle after 48 hours. 11/03/23 18:58 Blood Anaerobic Blood Culture - Preliminary No growth in Anaerobic bottle after 48 hours. 11/03/23 18:58 Blood Aerobic Blood Culture - Preliminary No growth in Aerobic bottle after 48 hours. 11/03/23 18:58 Blood Anaerobic Blood Culture - Preliminary No growth in Anaerobic bottle after 48 hours. 11/03/23 12:58 Shoulder,Left Gram Stain - Final 11/03/23 12:58 Shoulder,Left Aerobic and Anaerobic Culture - Preliminary No growth to date. Diagnostic Findings Shoulder X-Ray 11/03/23 14:29 XR shoulder LT min 2V routine CLINICAL HISTORY: Post shoulder surgery TECHNIQUE: 3 views of the left shoulder were obtained. Comparison: Comparison is made to shoulder radiograph 04/30/2012 FINDINGS: Patient is status post shoulder arthroplasty with expected postsurgical changes including soft tissue swelling and subcutaneous emphysema. No periarticular lucency or hardware fracture is seen. IMPRESSION: Expected postoperative appearance status post placement of shoulder arthroplasty. ACT 112: Negative or not required by law. Electronically signed by: Guzman Torrez M.D. 11/03/2023 3:14 PM Medications Administered Current Inpatient Medications Acetaminophen (Acetaminophen 500 Mg Tab) 1,000 mg PO Q8 [facility] Stop: 12/03/23 21:59 Last Admin: 11/06/23 05:03 Dose: 1,000 mg Amlodipine Besylate (Amlodipine Besylate 5 Mg Tab) 10 mg PO QAM [facility] Stop: 12/04/23 08:59 Last Admin: 11/06/23 07:15 Dose: 10 mg Bisacodyl (Bisacodyl 10 Mg Supp) 10 mg ME DAILY PRN PRN Reason: Constipation Stop: 12/03/23 15:16 Docusate Sodium (Docusate Sodium 100 Mg Cap) 100 mg PO BID [facility] Stop: 12/03/23 20:59 Last Admin: 11/06/23 07:16 Dose: 100 mg Ezetimibe (Ezetimibe 10 Mg Tab) 10 mg PO QPM [facility] Stop: 12/03/23 20:59 Last Admin: 11/05/23 20:03 Dose: 10 mg Hydromorphone HCl (Hydromorphone Inj 0.5 Mg/0.5 Ml Syr) 0.5 mg IV Q4H PRN PRN Reason: Pain or Pre PT Stop: 11/17/23 15:16 Ceftriaxone Sodium 2,000 mg/ (Dextrose) 50 mls @ 100 mls/hr IV Q24H [facility]; Protocol Stop: 12/15/23 18:59 Last Infusion: 11/05/23 20:24 Dose: Infused Magnesium Hydroxide (Magnesium Hydroxide Susp 30 Ml Udc) 30 ml PO Q6H PRN PRN Reason: Constipation Stop: 12/03/23 15:16 Metoclopramide HCl (Metoclopramide Hcl Inj 5 Mg/Ml 2 Ml Vial) 10 mg IV Q6H PRN PRN Reason: Nausea And Vomiting Stop: 12/03/23 15:16 Metoprolol Succinate (Metoprolol Succ 25mg Ext Rel Tab) 75 mg PO BID [facility] Stop: 12/03/23 20:59 Last Admin: 11/06/23 07:15 Dose: 75 mg Miscellaneous (Carbamazepine 12-Hr Caps: Order Awaiting Action) 1 each N/A QS [facility] Stop: 12/04/23 00:00 Last Admin: 11/06/23 07:15 Dose: Not Given Multivitamins (Multivitamin Tab) 1 tab PO QAM [facility] Stop: 12/04/23 08:59 Last Admin: 11/06/23 07:15 Dose: 1 tab Naloxone HCl (Naloxone Hcl 0.4 Mg/1 Ml Vial/Carp) 0.1 mg IV Q5M PRN PRN Reason: Oversedation/Resp Depression Stop: 12/03/23 15:16 Ondansetron HCl (Ondansetron Inj 2 Mg/Ml 2 Ml Vial) 4 mg IV Q6H PRN PRN Reason: Nausea And Vomiting Stop: 12/03/23 15:16 Oxybutynin Chloride (Oxybutynin Chloride Xl 5 Mg Tabcr) 10 mg PO QPM [facility] Stop: 12/03/23 20:59 Last Admin: 11/05/23 20:03 Dose: 10 mg Oxycodone HCl (Oxycodone Hcl Ir 5 Mg Tab (Immediate Release)) 5 - 10 mg PO Q4H PRN PRN Reason: Pain or Pre PT Stop: 11/17/23 15:16 Rosuvastatin Calcium (Rosuvastatin Calcium 20 Mg Tab) 20 mg PO QPM [facility] Stop: 12/03/23 20:59 Last Admin: 11/05/23 20:04 Dose: 20 mg Sennosides (Senna 8.6 Mg Tab) 17.2 mg PO HS [facility] Stop: 12/03/23 20:59 Last Admin: 11/05/23 20:04 Dose: 17.2 mg Tamsulosin HCl (Tamsulosin Hcl 0.4 Mg Cap) 0.4 mg PO QPM [facility] Stop: 12/03/23 20:59 Last Admin: 11/05/23 20:04 Dose: 0.4 mg (1) Prosthetic shoulder infection Encounter type: initial encounter Qualified Code(s): T84.59XA - Infection and inflammatory reaction due to other internal joint prosthesis, initial encounter; Z96.619 - Presence of unspecified artificial shoulder joint (3) Asthma Asthma complication type: uncomplicated Asthma persistence: unspecified Asthma severity: unspecified severity Qualified Code(s): J45.909 - Unspecified asthma, uncomplicated
--- NOTE | 2023-11-06 17:06 | Hospitalist Progress Note ---
Date of Service November 06, 2023 Assessment & Plan (1) Prosthetic shoulder infection: Plan: - Patient had partial revision left total shoulder arthroplasty with irrigation and debridement with Dr. Patel on 11/03/2023 due to prosthetic left shoulder infection. - Leukocytosis at 16. Afebrile. CRP elevated at 2.31. -Infectious disease consulted for antibiotic management. Per their note today, 11/06/2023, they recommend continuing with ceftriaxone and vancomycin for now. Anticipate discharge on daptomycin and ceftriaxone tomorrow via PICC line. Will likely need 6 weeks of therapy followed by oral suppression. -- Preliminary left shoulder and blood cultures negative. - Pain control, activity level, medication reconciliation, and discharge planning per the primary team. - Medicine will sign off at this time. (2) CAD (coronary artery disease) of artery bypass graft: Plan: - Patient with history of CAD s/p CABG, bioprosthetic valve replacements, aortic stenosis, bilateral carotid stenosis s/p right endarterectomy, and abdominal aortic aneurysm - Continue amlodipine, aspirin, metoprolol - Continue ezetimibe and rosuvastatin for hyperlipidemia (3) Seizures: Plan: - Diagnosed after grand mal seizure in 2004. Last known seizure in 2010. - Continue carbamazepine (4) Hx of malignant neoplasm of kidney: Plan: - Resolved with cryoablation therapy in 09/2020 (5) BPH (benign prostatic hyperplasia): Plan: - Continue Alfuzosin and tolterodine (6) Asthma: Plan: - Mild. No SOB, wheezing, or respiratory distress at this time. Plan Medicine will sign off at this time. Please contact with any questions or concerns. Pain control, activity level, medication reconciliation, and discharge planning per the primary team. CODE STATUS: Full code Admission and Anticipated Discharge Date Admission Date: November 03, 2023 Subjective Patient had partial revision left total shoulder arthroplasty with irrigation and debridement with Dr. Patel on 11/03/2023 due to prosthetic left shoulder infection. Patient with history of CAD s/p CABG, renal cancer in 2020 s/p cryoablation, seizures, bioprosthetic valve replacements, renal stones, BPH, as thma. Patient seen and evaluated sitting in bedside chair. He reports that he has been completing his PT exercises. His pain is well-controlled with medication. He denies shortness of breath, chest pain, abdominal pain, headache, lightheadedness, fever or chills. He has no complaints. Medicine will sign off at this time. Please contact with any questions or concerns. Physical Exam Physical Exam: General: No acute distress, nondiaphoretic, well-developed, well-nourished. Skin: The skin was without rashes, erythema, edema, or bruising. Cardiac: Regular rate and rhythm without gallops or rubs. Systolic murmur. No carotid bruits. Pulm: Clear to auscultation bilaterally without wheezes, rales or rhonchi. No retractions or accessory muscle use. Abdominal: Positive bowel sounds x 4. Soft, nontender, without masses or organomegaly. No guarding or rebound tenderness. Neuro: A&O x3. No focal neurological deficits. Extremities: Left arm in sling. Left shoulder dressing is clean and dry. Normal motion of left wrist and hand. Good perfusion to left fingers. Results & Data Results & Data Vital Signs (Past 12 Hours) Vital Signs Temp Pulse Resp BP Pulse Ox O2 Del Method 11/06/23 14:40 36.4 C L 64 17 136/70 95 Room Air 11/06/23 09:00 Room Air 11/06/23 07:31 36.6 C 68 15 153/78 H 96 Room Air Laboratory Results Reviewed CBC Reviewed BMP Reviewed left shoulder and blood cultures PG Care Time/CCT Total # of Minutes Spent Total Time Spent with Patient: Total time spent is greater than 50% in coordination of care (as documented) at patient's floor/unit and/or counseling patient: Coding Level of Care Code 27265 SUB INP/OBS CARE 08/17MIN Diagnoses Infection of prosthetic shoulder joint, initial encounter T84.59XA; Z96.619 Encounter type: initial encounter Coronary artery disease involving coronary bypass graft of [place] heart without angina pectoris I25.810 [place] vs. transplanted heart: [place] heart Associated angina: without angina Seizures R56.9 Hx of malignant neoplasm of kidney Z85.528 Benign prostatic hyperplasia, unspecified whether lower urinary tract symptoms present N40.0 Lower urinary tract symptom presence: unspecified whether lower urinary tract symptoms present Uncomplicated asthma, unspecified asthma severity, unspecified whether persistent J45.909 Asthma severity: unspecified severity Asthma persistence: unspecified Asthma complication type: uncomplicated (1) Prosthetic shoulder infection Encounter type: initial encounter Qualified Code(s): T84.59XA - Infection and inflammatory reaction due to other internal joint prosthesis, initial encounter; Z96.619 - Presence of unspecified artificial shoulder joint (2) CAD (coronary artery disease) of artery bypass graft [place] vs. transplanted heart: [place] heart Associated angina: without angina Qualified Code(s): I25.810 - Atherosclerosis of coronary artery bypass graft(s) without angina pectoris (5) BPH (benign prostatic hyperplasia) Lower urinary tract symptom presence: unspecified whether lower urinary tract symptoms present Qualified Code(s): N40.0 - Benign prostatic hyperplasia without lower urinary tract symptoms (6) Asthma Asthma severity: unspecified severity Asthma persistence: unspecified Asthma complication type: uncomplicated Qualified Code(s): J45.909 - Unspecified asthma, uncomplicated
[2023-11-06] MEDS: OXcarbazepine 150 MG TABLET PO SCH (20:05)
[2023-11-07] MEDS: OXcarbazepine 150 MG TABLET PO SCH (08:37)
[2023-11-07] MEDS: DAPTOmycin 350 MG in SYRINGE 0 ML IV SCH (09:54)
--- NOTE | 2023-11-07 10:09 | Infectious Disease Progress Nt ---
Date of Service November 07, 2023 Assessment & Plan (1) Prosthetic shoulder infection: (2) Shoulder pain, left: (3) Asthma: Plan 73yo M with h/o LUE surgery at an including ORIF of proximal humerus OSH, s/p left cemented reverse shoulder replacement 12/2011, CAD s/p CABG, renal cancer in 2020 s/p cryoablation, asthma, BPH, seizures, renal stones, some h/o valve replacement who presented on 11/02 for surgery. Per chart, his shoulder has always been a little stiff and sore. He began noticing redness and hardness of the left axilla and was seen by outpatient ortho in Jul 2023, at which time this was ongoing x 6 weeks. Shoulder did not appear to be infected at that time. He was seen on 10/23 with left axilla drainage with some redness in the most inferior aspect of the incision. An MRI of the shoulder showed a large fluid collection beneath the prosthesis in the axilla. He was therefore planned for OR and undergo I+D. Here he has been afebrile, vss. WBC wnl, Cr wnl. ESR 33. MRI of the shoulder done on 10/15/2023 showed a rim-enhancing intramuscular fluid collection measuring up to 5.8cm within the teres major, suspicious for abscess. He is s/p partial revision left total shoulder arthroplasty with irrigation and debridement on 11/02 (per op note, moderate clear fluid expressed, joint irrigated and tissue debrided, no pus noted). Postop XR with expected postoperative appearance status post placement of shoulder arthroplasty. ID consulted 11/02 for assistance. ON 11/02 He went to OR for Partial Revision Left Total Shoulder Arthroplasty with Irrigation and Debridement and component exchange OR fluid appeared clear without infection. OR cultures are NG I spoke with daughter and patient today, He apparently was on abx prior to admission including Doxycycline and Bactrim. this may have reduced yield. Patient states he does work out in yard quite a bit, mowing lawn, trees/branches. No gardening but does have soil exposure # Partial Revision Left Total Shoulder Arthroplasty with Irrigation and Debridement and component exchange 11/02, OR CX No Growth # h/o left shoulder replacement # h/o CAD - Started Daptomycin, please increase to 6mg/kg IVdaily (Adjusted body weight), 500mg IV daily -Continue Ceftriaxone 2G IV daily -Plan for 6 weeks therapy through 12/15/23, for culture negative PJI -This should be followed by oral suppressive for at least 1 year, Typically we use cephalosporin but given he was doxy before I would recomemnd doxycycline 100mg po BID with food , but this should be at discretion of outpatient ID physician -Outpatient: please follow send out AFB/fungal cultures -Weekly CBC With diff, cmp, ESR, CRP, CPK while on IV -Hold statin until daptomycin is completed -Check CPK level this am and ensure normal prior to discharge This plan discussed extensively with patient and family. ID to s/o- If questions or concerns, contact Infectious Disease Call Center . Sona Benavidez MD [facility], Division of Infectious Diseases [facility]: [phone] Admission and Anticipated Discharge Date Admission Date: November 03, 2023 Subjective Subsequent visit was provided via telemedicine using two-way real-time interactive telecommunication between the patient and the telemedicine provider. For the duration of the visit, the provider was performing the assessment from a different facility than the patient. This includesuse of bluetooth stethoscope forauscultationperformed by the telepresenter that the telemedicine provider can hear if described in the physical exam. [employer] Bench Worker contact information: Please call [facility] Call Center . (Phone Number For Physician Use Only) After establishing a telemedicine visit, patient was: Patient was verified with two unique identifiers, Patient/authorized rep acknowledged consent and understanding and Gave permission to continue telehealth session Time Spent with Patient: Subsequent => 35 min Physical Exam Physical Exam: NAD OOB to chair L arm in sling Results & Data Vital Signs (Past 12 Hours) Vital Signs Temp Pulse Resp BP Pulse Ox O2 Del Method 11/07/23 07:39 36.3 C L 62 18 142/78 H 96 Room Air Diagnostic Findings Laboratory Results - last 48 hr 11/06/23 06:17 WBC 7.94 RBC 4.14 L Hgb 12.3 L Hct 36.6 L MCV 88.4 MCH 29.7 MCHC 33.6 RDW Std Deviation 42.5 RDW Coeff of Mac 13.1 Plt Count 243 MPV 9.8 Immature Gran % (Auto) 0.3 Neut % (Auto) 69.8 Lymph % (Auto) 17.3 Worth % (Auto) 9.8 Eos % (Auto) 2.3 Baso % (Auto) 0.5 Neut # (Auto) 5.55 Lymph # (Auto) 1.37 Worth # (Auto) 0.78 H Eos # (Auto) 0.18 Baso # (Auto) 0.04 Immature Gran # (Auto) 0.02 Sodium 139 Potassium 3.6 Chloride 106 Carbon Dioxide 28 Anion Gap 5 BUN 11 Creatinine 0.64 Est Cr Clr Drug Dosing 125.1 Est GFR ( Amer) 114.2 Est GFR (Non-Af Amer) 98.5 BUN/Creatinine Ratio 17.2 Glucose 105 H Calcium 8.9 Microbiology 11/03/23 12:58 Shoulder,Left Gram Stain - Final 11/03/23 12:58 Shoulder,Left Aerobic and Anaerobic Culture - Preliminary Probable guilherme gram pos bacilli 11/03/23 18:58 Blood Aerobic Blood Culture - Preliminary No growth in Aerobic bottle after 48 hours. 11/03/23 18:58 Blood Anaerobic Blood Culture - Preliminary No growth in Anaerobic bottle after 48 hours. 11/03/23 18:58 Blood Aerobic Blood Culture - Preliminary No growth in Aerobic bottle after 48 hours. 11/03/23 18:58 Blood Anaerobic Blood Culture - Preliminary No growth in Anaerobic bottle after 48 hours. Medications Administered Current Inpatient Medications Acetaminophen (Acetaminophen 500 Mg Tab) 1,000 mg PO Q8 [facility] Stop: 12/03/23 21:59 Last Admin: 11/07/23 05:17 Dose: 1,000 mg Amlodipine Besylate (Amlodipine Besylate 5 Mg Tab) 10 mg PO QAM [facility] Stop: 12/04/23 08:59 Last Admin: 11/07/23 08:35 Dose: 10 mg Bisacodyl (Bisacodyl 10 Mg Supp) 10 mg MO DAILY PRN PRN Reason: Constipation Stop: 12/03/23 15:16 Docusate Sodium (Docusate Sodium 100 Mg Cap) 100 mg PO BID [facility] Stop: 12/03/23 20:59 Last Admin: 11/07/23 08:36 Dose: Not Given Ezetimibe (Ezetimibe 10 Mg Tab) 10 mg PO QPM [facility] Stop: 12/03/23 20:59 Last Admin: 11/06/23 20:04 Dose: 10 mg Hydromorphone HCl (Hydromorphone Inj 0.5 Mg/0.5 Ml Syr) 0.5 mg IV Q4H PRN PRN Reason: Pain or Pre PT Stop: 11/17/23 15:16 Ceftriaxone Sodium 2,000 mg/ (Dextrose) 50 mls @ 100 mls/hr IV Q24H [facility]; Protocol Stop: 12/15/23 18:59 Last Infusion: 11/06/23 21:01 Dose: Infused Daptomycin 350 mg/ Syringe 7 mls @ 3.25 mls/min IV Q24H [facility]; Protocol Stop: 11/09/23 08:59 Last Admin: 11/07/23 09:54 Dose: 3.25 mls/min Magnesium Hydroxide (Magnesium Hydroxide Susp 30 Ml Udc) 30 ml PO Q6H PRN PRN Reason: Constipation Stop: 12/03/23 15:16 Metoclopramide HCl (Metoclopramide Hcl Inj 5 Mg/Ml 2 Ml Vial) 10 mg IV Q6H PRN PRN Reason: Nausea And Vomiting Stop: 12/03/23 15:16 Metoprolol Succinate (Metoprolol Succ 25mg Ext Rel Tab) 75 mg PO BID [facility] Stop: 12/03/23 20:59 Last Admin: 11/07/23 08:36 Dose: 75 mg Multivitamins (Multivitamin Tab) 1 tab PO QAM [facility] Stop: 12/04/23 08:59 Last Admin: 11/07/23 08:37 Dose: 1 tab Naloxone HCl (Naloxone Hcl 0.4 Mg/1 Ml Vial/Carp) 0.1 mg IV Q5M PRN PRN Reason: Oversedation/Resp Depression Stop: 12/03/23 15:16 Ondansetron HCl (Ondansetron Inj 2 Mg/Ml 2 Ml Vial) 4 mg IV Q6H PRN PRN Reason: Nausea And Vomiting Stop: 12/03/23 15:16 Oxcarbazepine (Oxcarbazepine 150 Mg Tablet) 600 mg PO QAM [facility] Stop: 12/07/23 08:59 Last Admin: 11/07/23 08:37 Dose: 600 mg Oxcarbazepine (Oxcarbazepine 150 Mg Tablet) 900 mg PO QPM [facility] Stop: 12/06/23 20:59 Last Admin: 11/06/23 20:05 Dose: 900 mg Oxybutynin Chloride (Oxybutynin Chloride Xl 5 Mg Tabcr) 10 mg PO QPM [facility] Stop: 12/03/23 20:59 Last Admin: 11/06/23 20:03 Dose: 10 mg Oxycodone HCl (Oxycodone Hcl Ir 5 Mg Tab (Immediate Release)) 5 - 10 mg PO Q4H PRN PRN Reason: Pain or Pre PT Stop: 11/17/23 15:16 Rosuvastatin Calcium (Rosuvastatin Calcium 20 Mg Tab) 20 mg PO QPM [facility] Stop: 12/03/23 20:59 Last Admin: 11/06/23 20:06 Dose: 20 mg Sennosides (Senna 8.6 Mg Tab) 17.2 mg PO HS [facility] Stop: 12/03/23 20:59 Last Admin: 11/06/23 20:04 Dose: Not Given Tamsulosin HCl (Tamsulosin Hcl 0.4 Mg Cap) 0.4 mg PO QPM [facility] Stop: 12/03/23 20:59 Last Admin: 11/06/23 20:05 Dose: 0.4 mg (1) Prosthetic shoulder infection Encounter type: initial encounter Qualified Code(s): T84.59XA - Infection and inflammatory reaction due to other internal joint prosthesis, initial encounter; Z96.619 - Presence of unspecified artificial shoulder joint (3) Asthma Asthma severity: unspecified severity Asthma persistence: unspecified Asthma complication type: uncomplicated Qualified Code(s): J45.909 - Unspecified asthma, uncomplicated
[2023-11-07] MEDS: DAPTOmycin 150 MG in SYRINGE 0 ML IV SCH (12:44)
--- NOTE | 2023-11-07 13:41 | Orthopedic Progress Note ---
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 He is not having much pain in his left shoulder. Infectious disease wishes him to be on daptomycin as well as ceftriaxone for 6 weeks upon discharge. PICC line is going to be placed this morning. Once PICC line is in place and case management completes ordering his IV antibiotics, he may be discharged. He will follow-up with orthopedics in 2 weeks for postoperative management. Subjective . Dyllan was seen and evaluated today resting comfortably in no apparent distress. Overall he is doing quite well today with good pain control to the left shoulder. He has been up and out of bed without difficulty. He has been receiving IV antibiotics. He denies any other concerns today. Review of Systems All systems reviewed & are unremarkable except as noted in HPI & below. Physical Exam .On physical examination of left shoulder, dressings are clean, dry, intact. He is maintaining his sling to the left shoulder. Grossly intact motor and sensory function to the left upper extremity. +2 radial pulse. Less than 2- second capillary refill. Normal sensation. Neurovascular intact. Results & Data Results & Data Laboratory Results . Diagnostic Findings . PG Care Time/CCT Total # of Minutes Spent Total Time Spent with Patient: Total time spent is greater than 50% in coordination of care (as documented) at patient's floor/unit and/or counseling patient: Coding Level of Care Code 39825 Post Operative Follow-Up Diagnoses Infection of prosthetic shoulder joint, initial encounter T84.59XA; Z96.619 Encounter type: initial encounter (1) Prosthetic shoulder infection Encounter type: initial encounter Qualified Code(s): T84.59XA - Infection and inflammatory reaction due to other internal joint prosthesis, initial encounter; Z96.619 - Presence of unspecified artificial shoulder joint
--- NOTE | 2023-11-07 13:45 | Discharge Summary ---
Date of Service November 07, 2023 Principal Diagnosis Same as "Discharge Diagnosis" noted below under Discharge Instructions. Discharge Exam .On physical examination of left shoulder, dressings are clean, dry, intact. He is maintaining his sling to the left shoulder. Grossly intact motor and sensory function to the left upper extremity. +2 radial pulse. Less than 2- second capillary refill. Normal sensation. Neurovascular intact. Discharge Data Consultations 11/03/23 15:17 Consult Hospitalist Routine Consult Infectious Diseases Routine Procedures Performed Operation Date: 11/03/23 11:40 Actual Procedures p Partial Revision Left Total Shoulder Arthroplasty with Irrigation and Debridement(Left) - Javier Patel, Ordered Studies 11/03/23 11:57 US - OR guided needle placemen Routine 11/06/23 05:00 US - OR guided needle placemen Routine Hospital Course (1) Prosthetic shoulder infection: On November 03, 2023 Dyllan arrived at [facility] and underwent a partial revision left total shoulder arthroplasty with irrigation and debridement performed by Dr. Patel with no complications. He had a general anesthetic. Postoperatively, he was transferred to the PACU for immediate postoperative management and then transferred to the general orthopedic floor in stable condition. His hospital course was uneventful. On postoperative day #1, his vital signs are stable and his pain is well-controlled. He participated well with physical therapy working on range of motion exercises. He was started on ceftriaxone and vancomycin until blood cultures as well as operative cultures were completed. On postoperative day #2 and postoperative day #3, there is no significant events that occurred on this day. Final culture results as well as infectious disease recommendations on home antibiotic therapy were the reasons for his extended stay as well as continuing current IV antibiotic treatment. On postoperative day #4, his vital signs are stable and his pain is well- controlled. He continued to work with physical therapy working on range of motion exercises. Infectious disease final recommendations were to have the patient begin a 6-week treatment with ceftriaxone and daptomycin. PICC line was then placed as well as prescription and wrote out for IV treatment with home health. He was then discharged home in stable condition. He will follow-up with orthopedics in 2 weeks for postoperative management. Encounter type: initial encounter Qualified Code(s): T84.59XA - Infection and inflammatory reaction due to other internal joint prosthesis, initial encounter; Z96.619 - Presence of unspecified artificial shoulder joint PG Care Time/CCT Total # of Minutes Spent Total Time Spent with Patient: Total time spent is greater than 50% in coordination of care (as documented) at patient's floor/unit and/or counseling patient: Discharge Plan Discharge Items Patient Disposition: Home - Home Health Services Reason For Visit: POST OP Discharge Diagnosis: Same Activity: As commented below Lifting: Wait until after follow-up appointment Bathing: Keep incision dry Exercise/Sports: Wait until after follow-up appointment Driving/Machine Use: Until Out of Sling Weightbearing: Left non-weightbearing Non-emergency contact: Surgeon Call non-emergency contact if: your temperature is above 101.5, your wound has increased redness, your wound has increased drainage and your wound pain has increased Follow-up/Referrals: PCP,NO [Physician] - Diet: Regular Addtl Attending Provider Instructions: As discussed in the office/Post Op with Dr. Patel. Pending Studies at Discharge: No Stand-Alone Forms: My [employer], Smoking Cessation Medications and DC Order Prescriptions: Continued triamcinolone acetonide 0.5 % cream 1 applic topical TID Qty: 15 0RF Probiotic Acidophilus 250 million cell Capsule 1,000 mmu cells PO HS Balance Of Nature Fruits/Vegs 1 dose PO DAILY amlodipine 10 mg Tablet 10 mg PO QAM alfuzosin 10 mg Tablet Extended Release 24 Hr 10 mg PO QPM Rx Instructions: administer after the same meal each day aspirin 81 mg Capsule 81 mg PO HS ezetimibe [Zetia] 10 mg Tablet 10 mg PO QPM tolterodine 4 mg Capsule,Extended Release 24hr 4 mg PO QPM metoprolol succinate 25 mg Tablet Extended Release 24 Hr 75 mg PO BID oxcarbazepine 300 mg tablet 900 mg PO QPM oxcarbazepine 300 mg tablet 600 mg PO QAM [facility] rosuvastatin 20 mg Tablet 20 mg PO QPM Hold Instructions: Resume on 12/20/23. Hold Until complete with daptomycin therapy and cleared to resume by PCP/Infectious Disease. Discharge Orders: Discharge Order (Routine); Ordered 11/07/23 Ordered By: Madhu Gonzalez/Other Patient Handouts: DVT Post Op Prevention, Central Venous Access Device Admission Data Admit Date/Time: 11/03/23 14:37 Attending Provider: Javier Patel Admit Provider: Javier Patel Primary Care Provider: Ulises Moore Other Providers: Ada Schaffer; Susana Anderson; Lele Sparrow; Sona Benavidez; Kasia Lincoln; Sebas Silver; Bailey Funk; Cee Rutledge Other Interventions: Discharge Summary Assessment (RN) Last Done: 11/07/23 11:10
[2023-11-08] MEDS ORDERED: DAPTOmycin 500 MG in SYRINGE 0 ML IV SCH (09:00)
== END 2023-11-07 16:10 | disposition home health service (06) | DRG 483 ==
LOC: ASU 09:43 → 3E 09:43 → OBSVTOIN 14:29